=== PATIENT | male | born 1935 | race Caucasian/White ===

== ENCOUNTER 2023-09-23 06:46 | Inpatient (IN) | payer OTHER ==
[2023-09-23 07:19] VITALS: BMI 26.5
[2023-09-23 08:51] LABS: BASO % 0.7 % (0-2.0); EOS % 2.4 % (0-4.5); HEMOGLOBIN 12.8 GM/dL (11.7-16.9); LYMPH % 10.6 % (8-40); MCH 32.4 pg (25.7-33.7); MCHC 32.7 g/dl (32.0-35.9); MEAN CELL VOLUME 98.9 fl (80-96); MEAN PLT VOLUME 8.4 fl (7.5-11.1); MONO % 8.1 % (3.8-10.2); NEUT % 78.2 % (42.8-82.8); PLATELET COUNT 244 10^3/uL (134-434); RBC 3.95 M/mm3 (4.00-5.60); RDW 13.7 % (11.9-15.9); WHITE BLOOD COUNT 12.3 K/mm3 (4.0-10.0)
[2023-09-23 08:54] LABS: INR 1.01 (0.83-1.09); PROTHROMBIN TIME (PATIENT) 11.7 SEC (9.7-13.0)
[2023-09-23 09:01] LABS: POTASSIUM 4.6 mmol/L (3.5-5.1)
[2023-09-23 09:04] LABS: ALBUMIN 3.3 g/dl (3.4-5.0); BLOOD UREA NITROGEN 29.1 mg/dL (7-18); CALCIUM 8.9 mg/dL (8.5-10.1)
[2023-09-23 09:05] LABS: MAGNESIUM 2.1 mg/dL (1.8-2.4)
[2023-09-23 09:07] LABS: PHOSPHOROUS 2.7 mg/dL (2.5-4.9)
[2023-09-23 09:08] LABS: TOT PROT 7.3 g/dl (6.4-8.2)
[2023-09-23 09:09] LABS: BILIRUBIN,TOTAL 0.4 mg/dL (0.2-1)
[2023-09-23 16:51] LABS: EPI CELLS 1 /uL (0-25.1); HYALINE CASTS 1 /uL (0-3.1); PH,URINE 6.5 (5.0-8.0); URINE APPEARANCE CLEAR; URINE BACTERIA 34 /uL (0-1359); URINE BILIRUBIN NEGATIVE (NEGATIVE); URINE COLOR YELLOW; URINE GLUCOSE (UA) NEGATIVE (NEGATIVE); URINE KETONE NEGATIVE (NEGATIVE); URINE LEUK ESTERASE 2+ (NEGATIVE); URINE NITRITE NEGATIVE (NEGATIVE); URINE PROTEIN 1+ (NEGATIVE); URINE RBC 22 /uL (0-23.9); URINE UROBILINOGEN 0.2 mg/dL (0.2-1.0); URINE WBC 609 /uL (0-25.8)
[2023-09-23] MEDS ORDERED: hydrALAZINE HCL 25 MG TABLET (FP) ONE (23:25)
[2023-09-23] MEDS ORDERED: SENNOSIDES 8.6MG TABLET (FP) PO ONE (23:26)
[2023-09-23] MEDS ORDERED: TAMSULOSIN HCL 0.4 MG CAP ONE (23:26)
[2023-09-23] MEDS ORDERED: ATORVASTATIN CA 10 MG TABLET (FP) ONE (23:26)
[2023-09-23] MEDS ORDERED: MIRTAZAPINE 15 MG TABLET (FP) ONE (23:26)
[2023-09-23] MEDS ORDERED: HEPARIN NA (PORCINE) 5,000 UNITS/ML 1ML VIAL ONE (23:26)
[2023-09-23] MEDS: MIRTAZAPINE 15 MG TABLET (FP) PO SCH (23:32)
[2023-09-23] MEDS: TAMSULOSIN HCL 0.4 MG CAP PO SCH (23:32)
[2023-09-23] MEDS: ATORVASTATIN CA 10 MG TABLET (FP) PO SCH (23:32)
[2023-09-23] MEDS: hydrALAZINE HCL 25 MG TABLET (FP) PO SCH (23:32)
[2023-09-23] MEDS: HEPARIN NA (PORCINE) 5,000 UNITS/ML 1ML VIAL SQ SCH (23:33)
[2023-09-24] MEDS: LATANOPROST 0.005% OPHTH SOLN 2.5ML BOTTLE OU SCH (00:25)
[2023-09-24] MEDS: SENNOSIDES 8.6MG TABLET (FP) PO SCH (00:25)
[2023-09-24] MEDS ORDERED: hydrALAZINE HCL 20 MG/ML VIAL ONE (06:19)
[2023-09-24] MEDS: hydrALAZINE HCL 20 MG/ML VIAL IVPUSH ONE (06:33)
[2023-09-24 07:40] LABS: BASO % 0.4 % (0-2.0); EOS % 0.7 % (0-4.5); HEMATOCRIT 38.4 % (35.4-49); HEMOGLOBIN 12.7 GM/dL (11.7-16.9); LYMPH % 8.6 % (8-40); MCH 32.5 pg (25.7-33.7); MEAN CELL VOLUME 98.4 fl (80-96); MONO % 8.5 % (3.8-10.2); NEUT % 81.8 % (42.8-82.8); PLATELET COUNT 213 10^3/uL (134-434); RBC 3.91 M/mm3 (4.00-5.60); RDW 13.5 % (11.9-15.9); WHITE BLOOD COUNT 12.5 K/mm3 (4.0-10.0)
[2023-09-24 07:56] LABS: POTASSIUM 4.4 mmol/L (3.5-5.1)
[2023-09-24 07:58] LABS: CALCIUM 8.4 mg/dL (8.5-10.1)
[2023-09-24 07:59] LABS: ALBUMIN 3.1 g/dl (3.4-5.0); BLOOD UREA NITROGEN 29.2 mg/dL (7-18)
[2023-09-24 08:04] LABS: BILIRUBIN,TOTAL 0.7 mg/dL (0.2-1); TOT PROT 6.7 g/dl (6.4-8.2)
[2023-09-24] MEDS: POLYETHYLENE GLYCOL (HEALTHYLAX) 3350 17 GM PACKET PO SCH (10:38)
[2023-09-24] MEDS: metoPROLOL SUCCINATE 25 MG TAB.SR.24H (FP) PO SCH (10:38)
[2023-09-24] MEDS: ASPIRIN 81 MG CHEWABLE TABLETS PO SCH (10:38)
[2023-09-24] MEDS: FERROUS SO4 325 MG TABLET (FP) PO SCH (10:38)
[2023-09-24] MEDS: MEMANTINE HCL 5 MG TABLET (UD) PO SCH (10:38)
[2023-09-24] MEDS: ESCITALOPRAM OXALATE 10 MG TABLET PO SCH (10:38)
[2023-09-25] MEDS: hydrALAZINE HCL 20 MG/ML VIAL IVPUSH ONE (03:50)
[2023-09-25] MEDS: NYSTATIN 100000 UNIT/GM TOPICAL OINTMENT 15 GM TUBE TP SCH (09:37)
[2023-09-25] MEDS: DUTASTERIDE 0.5 MG CAP (FP) PO SCH (10:27)
[2023-09-25 12:19] LABS: BASO % 0.2 % (0-2.0); EOS % 0.1 % (0-4.5); HEMATOCRIT 38.4 % (35.4-49); HEMOGLOBIN 12.9 GM/dL (11.7-16.9); LYMPH % 5.4 % (8-40); MCH 32.9 pg (25.7-33.7); MCHC 33.5 g/dl (32.0-35.9); MEAN CELL VOLUME 98.1 fl (80-96); MEAN PLT VOLUME 8.5 fl (7.5-11.1); MONO % 7.4 % (3.8-10.2); NEUT % 86.9 % (42.8-82.8); PLATELET COUNT 249 10^3/uL (134-434); RBC 3.91 M/mm3 (4.00-5.60); RDW 13.7 % (11.9-15.9); WHITE BLOOD COUNT 11.2 K/mm3 (4.0-10.0)
[2023-09-25] MEDS: NYSTATIN 100,000 UNIT/GM TOPICAL CREAM 15 GM TUBE TP SCH (12:39)
[2023-09-25 12:52] LABS: CALCIUM 8.8 mg/dL (8.5-10.1)
[2023-09-25 12:53] LABS: ALBUMIN 3.1 g/dl (3.4-5.0); BLOOD UREA NITROGEN 36.6 mg/dL (7-18)
[2023-09-25 12:56] LABS: CREATININE 2.4 mg/dL (0.55-1.3)
[2023-09-25 12:57] LABS: BILIRUBIN,TOTAL 0.6 mg/dL (0.2-1); TOT PROT 6.8 g/dl (6.4-8.2)
[2023-09-26] MEDS: CHLORTHALIDONE 25 MG TABLET PO SCH (16:39)
[2023-09-26] MEDS: amLODIPine BESYLATE 5 MG TABLET (FP) PO SCH (17:55)
[2023-09-26 19:07] VITALS: RESP 18
[2023-09-27 06:41] VITALS: TEMP 97.5
[2023-09-27 07:26] LABS: POTASSIUM 3.9 mmol/L (3.5-5.1)
[2023-09-27 07:38] LABS: ALBUMIN 2.8 g/dl (3.4-5.0); BLOOD UREA NITROGEN 42.3 mg/dL (7-18); CALCIUM 8.9 mg/dL (8.5-10.1)
[2023-09-27 07:41] LABS: CREATININE 2.1 mg/dL (0.55-1.3)
[2023-09-27 07:43] LABS: BILIRUBIN,TOTAL 0.5 mg/dL (0.2-1); TOT PROT 6.2 g/dl (6.4-8.2)
[2023-09-27 08:16] VITALS: BP 170/64; PULSE 65
== END 2023-09-27 16:15 | DRG 690 ==
LOC: JER 06:46 → JERBED 11:40 → OBSVTOIN 18:29 → JERBED 09-24 22:04 → J4W 09-24 22:52
PROVIDERS: ADMIT Family Medicine; ATTEND Family Medicine
DX: N39.0 Urinary tract infection, site not specified (principal); R55 Syncope and collapse; N13.30 Unspecified hydronephrosis; E11.9 Type 2 diabetes mellitus without complications; F03.90 Unspecified dementia, unspecified severity, without behavioral disturbance, psychotic disturbance, mood disturbance, and anxiety; I10 Essential (primary) hypertension; N40.1 Benign prostatic hyperplasia with lower urinary tract symptoms; D64.9 Anemia, unspecified; R33.9 Retention of urine, unspecified; N47.2 Paraphimosis; N48.1 Balanitis; E78.5 Hyperlipidemia, unspecified
CPT/HCPCS: 36415; 70450-TC; 71045-TC-FY; 72125-TC; 72170-TC-FY; 74018-TC-FY; 76700-TC; 76775-TC; 80053; 81003; 82962; 83735; 83935; 84100; 84484; 85025; 85610; 85730; 86850; 86900; 86901; 87086; 87186; 93005; 93010; 93306-TC; 93880-TC; 97116-GP; 97161-GP; 99285-25; G0378; J1644